=== PATIENT | female | born 1990 | race Caucasian/White ===

== ENCOUNTER 2022-05-09 15:56 | Outpatient (CLI) | payer BC, SELFPAY ==
--- NOTE | 2022-05-09 16:00 | CRLHL7_ITS ---
For Patients: As a result of the Century Cures Act, medical imaging exams and procedure reports are released immediately into your electronic medical record. You may view this report before your referring provider. If you have questions, please contact your health care provider. INDICATION: Abnormal uterine bleeding TECHNIQUE: Ultrasound pelvis transabdominal and transvaginal for better assessment or to better visualize the endometrium. Real time sonographic images with Spectral and color Doppler imaging of the ovaries were obtained. COMPARISON: 11/28/2019 FINDINGS: Uterus: 8.2 centimeter x 3.4 centimeter x 4.0 centimeter . Heterogeneous myometrium. No masses. Endometrium: Transvaginal imaging was performed to better evaluate the endometrium. 0.1 centimeter in thickness. No sign of endometrial mass or fluid. Right ovary: 3.3 centimeter x 2.7 centimeter x 1.6 centimeter no ovarian or adnexal masses. Normal arterial and venous blood flow. Left ovary: 2.7 centimeter x 1.6 centimeter x 2.7 centimeter. No ovarian or adnexal masses. Normal arterial and venous blood flow. Cul-de-sac: No significant free fluid. IMPRESSION: Heterogeneous myometrium. The endometrium measures up to 11 millimeters. Dictated by Nicola Farah MD @ 05/09/2022 5:20:26 PM (Electronically Signed)
== END 2022-05-09 15:57 | disposition home or self-care (01) ==
LOC: US 15:57
PROVIDERS: PCP Nurse Practitioner Family; Visit Provider Nurse Practitioner Family
DX: N93.8 Other specified abnormal uterine and vaginal bleeding (principal); R93.89 Abnormal findings on diagnostic imaging of other specified body structures
CPT/HCPCS: 76830; 76856

== ENCOUNTER 2023-05-18 16:14 | Outpatient (CLI) | payer BC, SELFPAY ==
--- OUTSIDE RECORDS SUMMARY | 2023-05-18 16:16 | XMS_ITS | Clinical Summary ---
Author Name Unknown Organization [email or web address] [facility] Address [place], [place] [address] Care Team Providers Care Net Developer With [employer] Name Role Phone Noemi Ward MD Primary Care Provider [phone] Allergies No known active allergies Medications Medication Sig Dispensed Refills Start Date End Date Status topiramate (TOPAMAX) 50 mg tablet Take 1 tablet by mouth 2 times daily. 60 tablet 11 08/21/2012 Active topiramate (TOPAMAX) 25 mg tablet Take 1 tablet by mouth 2 times daily. 14 tablet 0 08/21/2012 Active norgestimate-ethinyl estradiol, 0.25-35 mg-mcg, (PREVIFEM) 0.25-35 mg-mcg tablet Take 1 tablet by mouth once daily. 84 tablet 0 09/27/2013 Active Active Problems Problem Noted Date Diagnosed Date Headache, chronic daily 11/08/2010 Immunizations Name Administration Dates Next Due Hepatitis B, Unspecified 04/05/2005,11/16/2004,0 09/30/2004 Human Papilloma Virus Vaccine 08/21/2012 Tdap 09/28/2004 Family History Medical History Relation Name Comments Asthma Mother Hypertension Mother Relation Name Status Comments Mother Social History Tobacco Use Types Packs/Day Years Used Date Smoking Tobacco: Every Day Cigarettes Smokeless Tobacco: Never Tobacco Cessation:Ready to Q uit: Yes Comments:gradually cutting down Alcohol Use Standard Drinks/Week Comments Yes 0 (1 standard drink = 0.6 oz pur e alcohol) Once per month. Sex and Gender Information Value Date Recorded Sex Assigned at Not on file Gender Identity Not on file Sexual Orientation Not on file Obstetrics History Last Filed Vital Signs Vital Sign Reading Time Taken Comments Blood Pressure 118/60 08/21/2012 8:22 AM CDT Pulse 76 08/21/2012 8:22 AM CDT Temperature - - Respiratory Rate - - Oxygen Saturation - - Inhaled Oxygen Concentration - - Weight 93.2 kg (205 lb 6.4 oz) 08/21/2012 8:22 A M CDT Height 168.3 cm (5' 6.25) 08/21/2012 8:22 AM CD T Body Mass Index 32.9 08/21/2012 8:22 AM CDT Plan of Treatment Health Maintenance Due Date Last Done Comments Depression screening for age 12+ 2003 BMI (ht and wt on same day) for age 18+ 12/15/2009 Hepatitis C screening for age 18-79 12/15/2009 Tetanus booster 09/28/2014 09/28/2004 (Comp leted outside of [facility]), 09/28/2004 COVID-19 vaccine series (2022- season) 2022 Influenza for age 9-49 10/08/2023 Pap test for age 21-65 02/17/2024 02/16/2021 Tdap Completed 09/28/2004 HIV for age 15-65 Completed 08/21/2012 Pneumococcal series for age 6-64 Aged Out No longer eligible based on patient's age to complete this topic Procedures Procedure Name Priority Date/Time Associated Diagnosis Comments RN CIRCULATING THIN PREP PAP SCREEN IMAGED Routine 02/16/2021 4:50 PM WEBFOCUS DEVELOPER ANTI HIV 1/2 Routine 08/21/2012 9:16 AM CDT Screen for STD (sexually transmitted disease) from Last 3 Months or Most Recently Relevant to Health Maintenance Results * RN CIRCULATING THIN PREP PAP SCREEN IMAGED (02/16/2021 4:50 PM WEBFOCUS DEVELOPER) Case Report Gynecologic Cytology Report ? Case: [id number] ? Authorizing Provider: ??Arlene Loya, ADMITTING REPRESENTATIVE ?Collected: ? 02/16/2021 1650 ? Ordering Location: ? [facility] ?Received: ?02/18/2021 0826 ? First Screen: ?Jane Emerson ? Specimen: ?RN CIRCULATING ThinPrep Vial Screening, Cervical/Vaginal ? 02/23/2021 3:02 PM [facility] INTERPRETATION/ RESULT NEGATIVE FOR INTRAEPITHELIAL LESION OR MALIGNANCY (NIL) (none) 02/23/2021 3:02 PM [facility] IMEN ADEQUACY Satisfactory for evaluation Endocervical component present 02/23/2021 3:02 PM [facility] HPV REQUEST HPV if ASCUS 02/23/2021 3:02 PM [facility] Additional Information 02/23/2021 3:02 PM [facility] Comment: Interpreted at [facility], Central Laboratory - [address], [place] [address] Automated Review Successful 02/23/2021 3:02 PM [facility] Comment:Specimen processed s uccessfully by automated marble cutter operator device, ThinPrep Imaging System, [employer] Note The pap test is a screening technique, not a diagnostic procedure. It is used primarily to screen for squamous cancers and precursor lesions. Published studies have shown that it is subject to both false negative and false positive results. The pap test should not be used as the sole means to diagnose or exclude pre-malignant and malignant lesions. 02/23/2021 3:02 PM [facility] Other (Cervical/Vagina l) 02/16/2021 4:50 PM WEBFOCUS DEVELOPER 02/18/2021 8:26 AM WEBFOCUS DEVELOPER Arlene Loya ADMITTING REPRESENTATIVE PATHOLOGY/CYTOLOGY [facility]ENTRAL LABORATORY [address] [place] [address], * ANTI HIV 1/2 (08/21/2012 9:16 AM CDT) ANTI HIV 1/2 Non-reacti ve [facility] Blood specimen (specimen) BLOOD SPECIMEN / Unknown 08/21/2012 9:16 AM CDT 08/21/2012 9:09 AM CDT Noemi Ward MD SEND OUTS [facility]ORY [place]NAL ZIP [id number] [place] [address] from Last 3 Months or Most Recently Relevant to Health Maintenance Care Teams Net Developer With [employer] Relationship Specialty Start Date End Date Noemi Ward MD PCP - General Family Practice 05/11/10
== END 2023-05-18 16:15 | disposition home or self-care (01) ==
LOC: KYNREF 16:15
PROVIDERS: PCP Nurse Practitioner Family; Visit Provider Nurse Practitioner Family
DX: E55.9 Vitamin D deficiency, unspecified (principal)
CPT/HCPCS: 82306

== ENCOUNTER 2023-08-21 09:47 | Outpatient (CLI) | payer BC, SELFPAY ==
--- OUTSIDE RECORDS SUMMARY | 2023-08-21 09:53 | XMS_ITS | Clinical Summary ---
Author Organization [facility] Address [place], [place] [address] Care Team Providers Care Remote Medical Coder Name Role Phone Noemi Ward MD Primary Care Provider [phone] Allergies No known active allergies Medications Medication [...] Procedure Name Priority Date/Time Associated Diagnosis Comments PLANE TABLEMAN THIN PREP PAP SCREEN IMAGED Routine 02/16/2021 4:50 PM BRANCH LEAD ANTI HIV 1/2 Routine 08/21/2012 9:16 AM CDT Screen for STD (sexually transmitted disease) from Last 3 Months or Most Recently Relevant to Health Maintenance Results * PLANE TABLEMAN THIN PREP PAP SCREEN IMAGED (02/16/2021 4:50 PM BRANCH LEAD) Case Report Gynecologic Cytology Report ? Case: [id number] ? Authorizing Provider: ??Arlene Loya, DOWN FILLER ?Collected: ? 02/16/2021 1650 ? Ordering Location: ? [facility] ?Received: ?02/18/2021 0826 ? First Screen: ?Jane Emerson ? Specimen: ?PLANE TABLEMAN ThinPrep Vial Screening, Cervical/Vaginal ? 02/23/2021 3:02 PM [facility] INTERPRETATION/ RESULT NEGATIVE FOR INTRAEPITHELIAL LESION OR MALIGNANCY (NIL) (none) 02/23/2021 3:02 PM [facility] IMEN ADEQUACY Satisfactory for evaluation Endocervical component present 02/23/2021 3:02 PM [facility] HPV REQUEST HPV if ASCUS 02/23/2021 3:02 PM [facility] Additional Information 02/23/2021 3:02 PM [facility] Comment: Interpreted at [facility], Central Laboratory - [address], [place] [address] Automated Review Successful 02/23/2021 3:02 PM [facility] Comment:Specimen processed s uccessfully by automated clothes wringer device, ThinPrep Imaging System, [employer] Note The pap test is a screening technique, not a diagnostic procedure. It is used primarily to screen for squamous cancers and precursor lesions. Published studies have shown that it is subject to both false negative and false positive results. The pap test should not be used as the sole means to diagnose or exclude pre-malignant and malignant lesions. 02/23/2021 3:02 PM [facility] Other (Cervical/Vagina l) 02/16/2021 4:50 PM BRANCH LEAD 02/18/2021 8:26 AM BRANCH LEAD Arlene Loya DOWN FILLER PATHOLOGY/CYTOLOGY [facility]-CENTRAL LABORATORY [address] [place] [address], * ANTI HIV 1/2 (08/21/2012 9:16 AM CDT) ANTI HIV 1/2 Non-reacti ve [facility] Blood specimen (specimen) BLOOD SPECIMEN / Unknown 08/21/2012 9:16 AM CDT 08/21/2012 9:09 AM CDT Noemi Ward MD SEND OUTS [facility] INTERNAL ZIP [id number] [place] [address] from Last 3 Months or Most Recently Relevant to Health Maintenance Care Teams Remote Medical Coder Relationship Specialty Start Date End Date Noemi Ward MD PCP - General Family Practice 05/11/10
[2023-08-21 13:56] LABS: Strep A DNA Probe* NOT DETECTED (Not Detectd)
== END 2023-08-21 09:48 | disposition home or self-care (01) ==
LOC: KYNREF 09:47
PROVIDERS: PCP Nurse Practitioner Family; Visit Provider Nurse Practitioner Family
DX: J02.9 Acute pharyngitis, unspecified (principal)
CPT/HCPCS: 87651

== ENCOUNTER 2024-09-16 14:55 | Outpatient (CLI) | payer BC, SELFPAY | END 2024-09-16 14:56 | disposition home or self-care (01) | PROVIDERS: PCP Nurse Practitioner Family; Visit Provider Nurse Practitioner Family | DX: E55.9 Vitamin D deficiency, unspecified (principal); E66.9 Obesity, unspecified; G43.911 Migraine, unspecified, intractable, with status migrainosus; Z13.6 Encounter for screening for cardiovascular disorders | CPT/HCPCS: 80053; 80061; 82306 ==